=== PATIENT | female | born 1995 | race Caucasian/White ===

== ENCOUNTER 2022-09-07 11:43 | Outpatient (CLI) | payer OTHER ==
[2022-09-07] MEDS ORDERED: PRENATAL TABLE1 EAC1 (12:45)
== END 2022-09-08 18:16 | disposition home or self-care (01) ==
LOC: OBS/DEL 11:43
PROVIDERS: ATTEND Obstetrics & Gynecology Obstetrics
DX: O21.0 Mild hyperemesis gravidarum (principal); Z3A.21 21 weeks gestation of pregnancy

== ENCOUNTER 2022-09-15 15:47 | Outpatient (CLI) | payer OTHER ==
[~2022-09-15 15:47] MED LIST: PRENATAL TABLE1 EAC1
== END 2022-09-15 16:39 | disposition home or self-care (01) ==
LOC: PRENATAL 15:47
PROVIDERS: ATTEND Obstetrics & Gynecology Maternal & Fetal Medicine
DX: O35.9XX0 Maternal care for (suspected) fetal abnormality and damage, unspecified, not applicable or unspecified (principal); O35.3XX0 Maternal care for (suspected) damage to fetus from viral disease in mother, not applicable or unspecified; Z3A.22 22 weeks gestation of pregnancy

== ENCOUNTER 2022-09-29 10:31 | Outpatient (CLI) | payer OTHER | END 2022-09-29 13:00 | disposition home or self-care (01) | LOC: PRENATAL 10:31 | PROVIDERS: ATTEND Obstetrics & Gynecology Maternal & Fetal Medicine | DX: O28.5 Abnormal chromosomal and genetic finding on antenatal screening of mother (principal); Z3A.24 24 weeks gestation of pregnancy ==